=== PATIENT | male | born 1950 | race Caucasian/White ===

== ENCOUNTER 2021-02-11 10:33 | Inpatient (IN) | payer OTHER ==
[2021-02-11] VITALS (8 sets, daily range): BP systolic 147–188; BP diastolic 82–106
[~2021-02-11] VITALS: Ht 180.3 cm; Wt 108.4 kg
[~2021-02-11 10:33] MED LIST: ACETAMINOPHEN325 M1 PO; AMBIEN 10 MG TA10 MG PO; AMLODIPINE BESY10 MG PO; CELEXA 20 MG TA20 M1 PO; COLACE 100 MG100 MG PO; CRESTOR10 MG PO; DESYREL50 MG PO; GLUCOPHAGE1000 MG PO; GLUCOPHAGE500 MG PO; GLYBURIDE 2.52.5 MG; HYDROCHLOROTH12.5 MG PO; LISINOPRIL40 MG PO; LOPRESSOR25 PO; LOVAZA1000 MG PO; NORVASC10 MG PO; OMEPRAZOLE40 MG PO; PACERONE 200 M200 M1 PO; PRADAXA150 MG PO; SOTALOL80 MG PO; TRAZODONE PO; TRILIPIX135 MG PO; TRIPLIX PO; VICTOZA0.6 MG/0.1 SUBQ
[2021-02-11] MEDS ORDERED: EZETIMIBE10 MG PO (10:49)
[2021-02-11] MEDS ORDERED: METFORMIN HCL500 M1 PO (10:50)
[2021-02-11] MEDS ORDERED: LEVOTHYROXINE50 MCG PO (10:50)
[2021-02-11] MEDS ORDERED: HYDROCHLOROTHIA25 M1 PO (10:51)
[2021-02-11] MEDS ORDERED: LOPRESSOR50 PO (10:51)
[2021-02-11] MEDS ORDERED: PACERONE200 MG PO (10:51)
[2021-02-11 11:13] LABS: ABSOLUTE NEUTROPHILS 5.6 thou/uL (1.4-8.2); ANION GAP 12 mmol/L (7-16); BASOPHILS 1.5 % (0.0-2.0); BUN 18 mg/dL (7-18); CALCIUM 9.2 mg/dL (8.5-10.1); CHLORIDE 103 mmol/L (98-107); CO2 26 mmol/L (21-32); CREATININE 1.3 mg/dL (0.7-1.3); EOSINOPHILS 2.2 % (0.0-3.0); GLUCOSE 227 mg/dL (74-106); HEMATOCRIT 48.8 % (42.0-52.0); HEMOGLOBIN 17.1 gm/dL (14.0-18.0); LYMPHOCYTES 16.7 % (24.0-44.0); MCHC 35.1 g/dL (28.0-37.0); MCV 88.5 fL (80.0-100.0); MONOCYTES 9.3 % (1.0-8.0); PLATELET COUNT 212 thou/uL (150-400); POLYS 70.3 % (36.0-66.0); POTASSIUM 3.7 mmol/L (3.5-5.1); RBC 5.52 mil/uL (4.50-6.00); SODIUM 141 mmol/L (136-145); WBC 7.9 thou/uL (4.0-11.0)
[2021-02-11 11:16] LABS: APTT 35.5 Seconds (24.5-32.8); INR 0.95; PROTIME 10.4 Seconds (9.3-11.4)
--- NOTE | 2021-02-11 11:22 | EKG ---
[address] [place] [address] ELECTROCARDIOGRAM REPORT Name: ESPERANZA SPICER Room #: PRE [facility]..#: [id number] Admission: Attend Phys: Discharge: Date of : 46 Report #: [id number] [facility] ED Test Date: 2021-02-11 Test Time: 10:50:36 Pat Name: ESPERANZA SPICER Department: Room: Gender: M Primary Care Pediatrician: KATRINA : 1950 Requested By: Max Marmolejo Order Number: [id number] MD: Jaden Watt Measurements Intervals [place] Rate: 77 P: -20 MS: 184 QRS: -57 QRSD: 120 T: 1 QT: 431 QTc: 488 Interpretive Statements Sinus rhythm IVCD, consider atypical RBBB Inferior infarct, age indeterminate Baseline wander in lead(s) III Compared to ECG 11/04/2013 07:45:03 Right bundle branch block now present Electronically Signed On 02-11-2021 11:22:09 CDT by Jaden Watt [email or web address] <ELECTRONICALLY SIGNED> By: Jaden Watt MD, [facility] 02/11/21 1122 1050 1050 Jaden Watt MD, FAC /EPI
[2021-02-11 11:23] LABS: SGOT 24 U/L (15-37); SGPT 24 U/L (16-63); TOTAL BILIRUBIN 0.5 mg/dL (0.2-1.0); TOTAL PROTEIN 7.5 g/dL (6.4-8.2); TROPONIN-I <0.06 ng/mL (<0.06)
[2021-02-11] MEDS ORDERED: ZETIA10 MG PO (11:42)
--- NOTE | 2021-02-11 18:29 | NUR ---
PT ADMITTED FROM ER FOR L SIDE WAEKNESS AT 1500PM, PT IS A&OX3, PT IS ON ROOM AIR, NEUROLOGY DR HAS SEEING PT, FIRST DOSE ASPRIN 325MG PO HAD GIVING AT 1600PM, PT'S L SIDE WEAKNESS HAS IMPROVED, RN HAS CALLED DR TO REPORT PT'S HIGH BP, NEW ORDERS HAVE RECEIVED, PT GETS UP TO BATH ROOM WITHOUT ASSIST. PT DENIES PAIN AND SOB AT THIS TIME.
--- NOTE | 2021-02-11 21:10 | NUR ---
PT ALERT AND ORIENTED X4 VSS. BP MODERATELY ELEVATED, HYDRALAZINE GIVEN. NEURO CHECK WNL PRESENTLY. DIRECTOR CLINICAL PHARMACOLOGY AND LE STRENGTH PUSH/ PULL EQUAL AND STRONG. DENIED NUMBNESS OR TINGLING. RIGHT PUPIL IS OPAQUE, NR, AND SIZE 5. 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 REINFORCED FALL PRECAUTIONS AND TP PLEASE CALL NS IF NEED TO GO TO BR. URINAL LEFT AT BS. CALL LIGHT IN REACH. BED ALARM IS ON.
[2021-02-12] VITALS (7 sets, daily range): BP systolic 162–187; BP diastolic 75–103
--- NOTE | 2021-02-12 03:49 | NUR ---
PT PROGRESSING TOWARDS D/C GOALS . BP ELEVATED 178/89. HYDRALAZINE GIVEN. NO C/O PAIN. PT UNLABORED ON CPAP. PT RESTING QUIETLY WITHOUT C/O. NO S/S DISTRESS. NEURO CHECK WNL . NO S/S TIA /CVA.
[2021-02-12 04:52] LABS: CHOLESTEROL 130 mg/dL (<200); HDL CHOLESTEROL 37 mg/dL (>40); LDL CHOLESTEROL 22 mg/dL (<100); TC:HDL 3.5 Ratio (Not establshd); TRIGLYCERIDE 356 mg/dL (<150); VLDL 71 mg/dL (<40)
[2021-02-12 04:53] LABS: SERUM ASSESSMENT Clear
[2021-02-12 07:07] LABS: GLYCOHEMOGLOBIN (HGB A1C) 8.1 % (4.8-5.6)
--- NOTE | 2021-02-12 19:33 | NUR ---
RN ASSUMED PT'S CARE AT 0700AM, PT IS A&OX3, PT IS BACK TO HIS BACE LINE, NO S/S OF CVA AT DAY SHIFT, RN HAS REPORTED TO DR ABOUT HIGH BP, NEW MEDICATIONS HAVE ORDER, RN HAS REPORTED TO NEXT SHIFT TO KEEP EYE ON PT.
--- NOTE | 2021-02-12 21:36 | NUR ---
PT ALERT AND ORIENTED X4. 98.7 BP ELEVATED. Rossy PURVIS NOTIFIED. WILL START LISINOPRIL 10 MG PO TONIGHT ORDERED BY ON DAY SHIFT. D/C IV HYDRALAZINE ORDER SINCE LISINOPRIL IS TO BE STARTED TONIGHT INSTEAD OF AM. WILL F/U LATER WITH BP. NEURO CHECK WNL UPON ASSESSMENT. NO WEAKNESS NOTED, SPEECH CLEAR , SMILE EQUAL. NO S/S DISTRESS. CLARITIN ORDERED FOR ALLERGIES AND ARTIFICIAL TEARS ORDERED FOR C/O ALLERGIES AFFECTING EYES.
[2021-02-13] VITALS (8 sets, daily range): BP systolic 146–184; BP diastolic 70–103
--- NOTE | 2021-02-13 04:19 | NUR ---
PT PROGRESSING TOWARDS D/C GOALS. NEURO WNL. ALL 4 EXT STRONG. DENIED ANY WEAKNESS, NUMBNESS OR TINGLING. SPEECH IS CLEAR, SMILE EQUAL. HYDRALAZINE GIVEN FOR ELEVATED BP.
[2021-02-13 05:45] LABS: HEMATOCRIT 45.6 % (42.0-52.0); HEMOGLOBIN 15.8 gm/dL (14.0-18.0); MCH 30.7 pg (26.0-34.0); MCHC 34.7 g/dL (28.0-37.0); MCV 88.4 fL (80.0-100.0); RBC 5.15 mil/uL (4.50-6.00); RDW 14.1 % (10.5-14.5); WBC 10.2 thou/uL (4.0-11.0)
[2021-02-13 05:52] LABS: CALCIUM 9.2 mg/dL (8.5-10.1); CREATININE 1.4 mg/dL (0.7-1.3); POTASSIUM 4.4 mmol/L (3.5-5.1)
--- NOTE | 2021-02-13 11:27 | 2DMMODE ---
[facility] [place] [address] 2 D/M-MODE ECHOCARDIOGRAM Name: ESPERANZA SPICER RAY Room #: 364-P ADM IN M.R.#: [id number] Admission: 02/11/21 Attend Phys: Mat Wise MD Discharge: Date of : 46 Report #: [id number] THIS REPORT FOR: cc: Jorge Hagan,Moustapha Newman MD [facility] ~ ADDENDUM APPROVED REPORT Study performed: 02/13/2021 09:46:06 EXAM: Comprehensive 2D, Doppler, and color-flow Echocardiogram Patient Location: Bedside Room #: 364 Status: routine BSA: 2.25 HR: 78 bpm BP: 184/103 mmHg Rhythm: NSR Other Information Study Quality: Good Indications CVA/TIA Hx:Afib, DM, HTN. Echo Enhancing Agent Indication: Rule out Shunt Agent(s) / Amount(s) Used: Agitated Saline 7 cc 2D Dimensions RVDd: 35.55 mm IVSd: 17.17 (7-11mm) LVOT Diam: 26.14 (18-24mm) LVDd: 41.57 mm PWd: 16.19 (7-11mm) Ascending Ao: 35.25 (22-36mm) LVDs: 24.57 (25-40mm) Left Atrium: 41.72 (27-40mm) Aortic Root: 36.67 mm Volumes Left Atrial Volume (Systole) Single Plane 4CH: 54.73 mL Single Plane 2CH: 43.24 mL LA ESV Index: 24.00 mL/m2 [facility] [address] [place] [address] 2 D/M-MODE ECHOCARDIOGRAM Name: ESPERANZA SPICER Room #: 364-P [facility] IN M.R.#: [id number] Admission: 02/11/21 Attend Phys: Mat Wise MD Discharge: Date of : 46 Report #: [id number] Aortic Valve AoV Peak Vijay.: 1.16 m/s AO Peak Gr.: 5.39 mmHg LVOT Max P.87 mmHg LVOT Max V: 0.98 m/s NATALIA Vmax: 4.55 cm2 Mitral Valve E/A Ratio: 0.7 MV Decel. Time: 259.01 ms MV E Max Vijay.: 0.68 m/s MV A Vijay.: 0.94 m/s MV PHT: 75.11 ms IVRT: 79.58 ms Pulmonary Valve PV Peak Vijay.: 1.16 m/s PV Peak Gr.: 5.41 mmHg Pulmonary Vein P Vein S: 0.78 m/s P Vein A: 0.29 m/s P Vein D: 0.41 m/s P Vein A Dur.: 128.0 msec P Vein S/D Ratio: 1.90 Tricuspid Valve RAP Estimate: 5.00 mmHg Left Ventricle The left ventricle is normal size. There is normal LV segmental wall motion. Mild concentric left ventricular hypertrophy. Left ventricular systolic function is normal. LVEF is 55-60%. Grade I - abnormal relaxation pattern. Right Ventricle The right ventricle is normal size. The right ventricular systolic function is normal. Atria The left atrium size is normal. Interatrial septum is intact without evidence of ASD or PFO. The right atrium size is normal. Aortic Valve The aortic valve is normal in structure. Trace aortic regurgitation. There is no aortic valvular stenosis. Mitral Valve The mitral valve is normal in structure. There is no mitral valve regurgitation noted. No evidence of mitral valve stenosis. [facility] [address] [place] [address] 2 D/M-MODE ECHOCARDIOGRAM Name: ESPERANZA SPICER MARINGOUIN Room #: 364-P [facility] IN .R.#: [id number] Admission: 02/11/21 Attend Phys: Mat Wise MD Discharge: Date of : 46 Report #: [id number] Tricuspid Valve The tricuspid valve is normal in structure. There is no tricuspid valve regurgitation noted. Pulmonic Valve The pulmonary valve is normal in structure. There is no pulmonic valvular regurgitation. Great Vessels The aortic root is normal in size. The ascending aorta is normal in size. IVC is normal in size and collapses >50% with inspiration. Pericardium There is no pericardial effusion. <Conclusion> Normal left ventricular size/ mild concentric hypertrophy Ejection fraction 60% Grade 1 diastolic dysfunction Normal right ventricular size/function Normal atrial size Trace aortic valve insufficiency Normal mitral valve structure and function No evidence of tricuspid valve insufficiency No pericardial effusion Normal aortic root size. <ELECTRONICALLY SIGNED> By: Moustapha Carreno MD, FACC 02/13/21 1127 26 26 Moustapha Carreno MD, FACC /INF
--- NOTE | 2021-02-13 19:51 | NUR ---
RN ASSUMED PT'S CARE AT 0700AM, PT IS A&OX3, PT'S DC PLAN IS ON HOLD, BECAUSE PT'S BP STLL IS HIGH , NEW ORDER, CONSULT CARDIOLOGY . RN HAS REPORTED TO NEXT SHIFT TO KEEP EYE ON PT.
[2021-02-14 04:31] VITALS: BP 136/78
[2021-02-14 05:30] LABS: CALCIUM 8.6 mg/dL (8.5-10.1); CREATININE 1.3 mg/dL (0.7-1.3); MAGNESIUM 2.1 mg/dL (1.8-2.4); POTASSIUM 3.1 mmol/L (3.5-5.1)
[2021-02-14 07:59] VITALS: BP 180/97
[2021-02-14 08:34] VITALS: BP 162/84
--- NOTE | 2021-02-14 10:20 | TEE ---
[facility] [place] [address] [address] TRANSESOPHAGEAL ECHOCARDIOGRAM Name: ESPERANZA SPICER DURHAM Room #: 364-P ADM IN M.R.#: [id number] Admission: 02/11/21 Attend Phys: Mat Wise MD Discharge: Date of : 46 Report #: [id number] THIS REPORT FOR: cc: Jorge Hagan,Moustapha Newman MD [facility] ~ APPROVED REPORT Study performed: 02/14/2021 08:57:51 EXAM: Transesophageal Echocardiogram Patient Location: [facility] Room #: 364 Status: routine BSA: 2.26 HR: 69 bpm BP: 136/78 mmHg Rhythm: NSR Other Information Study Quality: Adequate Indications CVA. Hx: Afib, cardioversion, HTN, HLP, DM. Procedure After obtaining informed consent, patient underwent transesophageal echo in the [employer]. Type of Sedation : Conscious Sedation Sedation was administered by CHANDLER Meyer. Sedation start time: 899 Case end Time: 907 Sedation was achieved intravenously with: Versed (5) Fentanyl (75) Transesophageal probe was inserted and advanced into esophagus without difficulty by Moustapha Carreno MD. Echo enhancement indication: R/O Septal defect. Echo enhancement agent administered: Agitated Saline The GREGORY was performed without complications. Throughout the procedure, the blood pressure, pulse oximetry, cardiac rhythm, and rate were monitored. The patient tolerated the procedure without adverse effects. Recovery from conscious sedation was uneventful and vital signs were stable. [facility] [address] [place] [address] TRANSESOPHAGEAL ECHOCARDIOGRAM Name: ESPERANZA SPICER Room #: 364-P ADM IN M.R.#: [id number] Admission: 02/11/21 Attend Phys: Mta Wise MD Discharge: Date of : 46 Report #: [id number] Left Ventricle The left ventricle is normal size. There is normal LV segmental wall motion. Mild concentric left ventricular hypertrophy. Left ventricular systolic function is normal. LVEF is 55-60%. Right Ventricle The right ventricle is normal size. The right ventricular systolic function is normal. Atria The left atrium size is normal. No thrombus is visualized in the left atrium or appendage. Interatrial septum is intact without evidence of ASD or PFO. Negative bubble study. The right atrium size is normal. Aortic Valve The aortic valve is normal in structure. Trace aortic regurgitation. There is no aortic valvular stenosis. Mitral Valve The mitral valve is normal in structure. Trace mitral regurgitation. No evidence of mitral valve stenosis. Tricuspid Valve The tricuspid valve is normal in structure. There is no tricuspid valve regurgitation noted. Great Vessels The aortic root is normal in size. The ascending aorta is normal in size. Mild plaque visualized. Pericardium There is no pericardial effusion. <Conclusion> Timeout was performed Esophageal probe was advanced without difficulty Normal left ventricular size with mild concentric hypertrophy Ejection fraction 60% Normal atrial size Tricuspid aortic valve, trace of aortic valve insufficiency Normal mitral valve structure and function with trace of insufficiency Left atrial appendage, moderate size and no obvious mass or clot [facility] [address] [place] [address] TRANSESOPHAGEAL ECHOCARDIOGRAM Name: NAYANESPERANZA DURHAM Room #: 364-P ADM IN M.R.#: [id number] Admission: 02/11/21 Attend Phys: Mat Wise MD Discharge: Date of : 46 Report #: [id number] detected Normal tricuspid valve structure, no insufficiency detected No evidence of ASD/VSD by color flow/bubble study No pericardial effusion Aorta minimal calcification throughout Patient tolerated procedure well <ELECTRONICALLY SIGNED> By: Moustapha Carreno MD, FACC 02/14/21 1020 1020 1020 Moustapha Carreno MD, FACC /INF
[2021-02-14 11:22] VITALS: BP 178/97
[2021-02-14] MEDS ORDERED: METOPROLOL SUCC50 MG PO (11:58)
[2021-02-14] MEDS ORDERED: ASA81BEC PO (11:58)
[2021-02-14] MEDS ORDERED: HYDRALAZINE 5050 MG PO (11:58)
[2021-02-14] MEDS ORDERED: LIPITOR40 MG PO (11:58)
[2021-02-14] MEDS ORDERED: ELIQUIS5 MG PO (11:58)
[2021-02-14] MEDS ORDERED: K-DUR 20 MEQ T20 MEQ PO (11:58)
[2021-02-14] MEDS ORDERED: LISINOPRIL10 MG PO (11:58)
[2021-02-14 13:12] VITALS: BP 161/93
[2021-02-14 13:28] VITALS: BP 161/93
--- NOTE | 2021-02-14 17:55 | NUR ---
PT'S BP HAD IMPROVED, PT'S GREGORY TEST SHOWED NORMAL, PT DID NOT HAVE S/S OF CVA TODAY, PT DC TO HOME ABOUT 1420PM, PT AND PT'S FAMILY UNDERSTANDED DC TEACHING WELL.
== END 2021-02-14 14:54 | disposition home or self-care (01) | DRG 65 ==
LOC: ER 10:33 → 3W 13:09 → EROBS 13:09 → 3W 14:42
PROVIDERS: Emergency Medicine; ADMIT Internal Medicine; ATTEND Internal Medicine
PROC: 5A09357 Assistance with Respiratory Ventilation, Less than 24 Consecutive Hours, Continuous Positive Airway Pressure (ICD-10-PCS; principal; 2021-02-12)
PROC: B24BZZ4 Ultrasonography of Heart with Aorta, Transesophageal (ICD-10-PCS; 2021-02-14)
DX: I63.89 Other cerebral infarction (principal); I48.20 Chronic atrial fibrillation, unspecified; G81.94 Hemiplegia, unspecified affecting left nondominant side; I16.0 Hypertensive urgency; E78.5 Hyperlipidemia, unspecified; I10 Essential (primary) hypertension; G47.33 Obstructive sleep apnea (adult) (pediatric); E03.9 Hypothyroidism, unspecified; E11.9 Type 2 diabetes mellitus without complications; K44.9 Diaphragmatic hernia without obstruction or gangrene; I67.9 Cerebrovascular disease, unspecified; E66.01 Morbid (severe) obesity due to excess calories; Z68.33 Body mass index [BMI] 33.0-33.9, adult; Z79.84 Long term (current) use of oral hypoglycemic drugs; Z99.81 Dependence on supplemental oxygen; Z91.14 Patient's other noncompliance with medication regimen; Z79.899 Other long term (current) drug therapy; Z88.8 Allergy status to other drugs, medicaments and biological substances
CPT/HCPCS: 10879